=== PATIENT | female | born 1995 | race Caucasian/White ===

== ENCOUNTER → 2021-12-06 | Outpatient (CLI) | payer OTHER | LOC: M RAD 06:55 | PROVIDERS: ATTEND Registered Nurse | DX: R10.11 Right upper quadrant pain (principal) ==

== ENCOUNTER 2022-03-16 15:20 | Outpatient (CLI) | payer OTHER ==
[~2022-03-16] VITALS: Ht 162.6 cm; Wt 73.5 kg
[2022-03-16 15:46] VITALS: BP 140/81
[2022-03-16] MEDS ORDERED: PRENTAB9 PO (15:52)
[2022-03-16] MEDS ORDERED: ACET-840 PO (15:52)
[2022-03-16] MEDS ORDERED: OMEP10CASR PO (15:54)
[2022-03-16] MEDS ORDERED: HOME MED LIST COMPLETE! XX SCH (15:55)
[2022-03-16 17:21] VITALS: BP 143/87
[2022-03-16 17:42] VITALS: BP 140/79
== END 2022-03-16 17:45 | disposition home or self-care (01) ==
LOC: M LDO 15:20
PROVIDERS: ATTEND Obstetrics & Gynecology
DX: O47.9 False labor, unspecified (principal); Z3A.00 Weeks of gestation of pregnancy not specified
CPT/HCPCS: 59025; 76815; G0463

== ENCOUNTER 2022-04-01 03:37 | Inpatient (IN) | payer OTHER ==
[2022-04-01] VITALS (7 sets, daily range): BP systolic 128–146; BP diastolic 66–89
[~2022-04-01] VITALS: Ht 162.6 cm; Wt 72.9 kg
[~2022-04-01 03:37] MED LIST: ACET-840 PO; OMEP10CASR PO; PRENTAB9 PO
[2022-04-01] MEDS ORDERED: LACTATED RINGER'S 1000 ML IV STA (04:54)
[2022-04-01] MEDS ORDERED: OXYTOCIN DRIP 30 UNITS in IV 1 EA IV PRN ×4 (04:55)
[2022-04-01] MEDS ORDERED: LR 1,000 ML IV SCH (04:55)
[2022-04-01] MEDS ORDERED: OXYTOCIN INJ 10 UNITS/ML VIAL (J2590) IV PRN (04:55)
[2022-04-01] MEDS ORDERED: LIDOCAINE 1% MDV 20ML VIAL INFIL PRN (04:55)
[2022-04-01 05:46] LABS: HEMATOCRIT 31.1 % (36.0-47.0); HEMOGLOBIN 9.4 g/dl (12.0-15.5); MEAN CORPUSCULAR HEMOGLOBIN 23.9 pg (27.0-33.0); MEAN CORPUSCULAR HGB CONC 30.2 g/dl (32.0-36.5); MEAN CORPUSCULAR VOLUME 79.1 fl (80.0-96.0); PLATELET COUNT, AUTOMATED 244 10^3/uL (150-450); RED BLOOD COUNT 3.93 10^6/uL (4.00-5.40); WHITE BLOOD COUNT 10.2 10^3/uL (4.0-10.0)
[2022-04-01] MEDS ORDERED: TUMS500C PO (05:51)
[2022-04-01] MEDS ORDERED: HOME MED LIST COMPLETE! XX SCH (06:00)
[2022-04-01 06:53] LABS: CORD GAS ABE V -5.4; CORD GAS HCO3 V 18.7 MEQ/L; CORD GAS O2 SAT V 83.8 %; CORD GAS PCO2 V 33.3 mmHg; CORD GAS PH V 7.368 UNITS; CORD GAS PO2 V 37.3 mmHg; CORD GAS SBC V 19.7 MEQ/L; CORD GAS TCO2 V 19.8 MEQ/L
[2022-04-01 06:56] LABS: CORD GAS ABE A -5.7; CORD GAS HCO3 A 23.7 MEQ/L; CORD GAS O2 SAT A 30.2 %; CORD GAS PCO2 A 62.8 mmHg; CORD GAS PH A 7.194 UNITS; CORD GAS PO2 A 17.3 mmHg; CORD GAS SBC A 18.2 MEQ/L; CORD GAS TCO2 A 25.6 MEQ/L
[2022-04-01] MEDS ORDERED: PROMETHAZINE 25 MG TAB PO PRN (07:05)
[2022-04-01] MEDS ORDERED: METHYLERGONOVINE MALEATE 0.2 MG TAB PO PRN (07:05)
[2022-04-01] MEDS ORDERED: OXYTOCIN DRIP 30 UNITS in IV 1 EA IV SCH (07:05)
[2022-04-01] MEDS ORDERED: RHOGAM 300 MCG (1500 IU) INJ (J2790) IM SCH (07:05)
[2022-04-01] MEDS ORDERED: ONDANSETRON 4MG/2ML VIAL IV PRN (07:05)
[2022-04-01] MEDS ORDERED: DOCUSATE SODIUM 100MG CAPSULE PO PRN (07:05)
[2022-04-01] MEDS: LR 1,000 ML IV SCH ×3 (07:05→23:05)
[2022-04-01] MEDS ORDERED: DIBUCAINE 1% OINTMENT 30GM TOP PRN (07:05)
[2022-04-01] MEDS ORDERED: PRENATAL VITAMINS CHEWABLE TABLET PO SCH (09:00)
[2022-04-01] MEDS: PRENATAL VITAMINS CHEWABLE TABLET PO SCH (09:00)
[2022-04-01] MEDS: IBUPROFEN 800 MG TAB PO SCH ×3 (09:25→23:41)
[2022-04-01] MEDS: ACETAMINOPHEN 500 MG TAB PO SCH ×3 (13:42→23:41)
[2022-04-02 06:05] VITALS: BP 120/75
[2022-04-02] MEDS: ACETAMINOPHEN 500 MG TAB PO SCH (06:21)
[2022-04-02] MEDS ORDERED: IBUP80TA PO (06:36)
[2022-04-02] MEDS ORDERED: COLA100C5 PO (06:36)
[2022-04-02] MEDS ORDERED: PRENCHW PO (06:36)
[2022-04-02] MEDS: LR 1,000 ML IV SCH (07:05)
[2022-04-02 07:40] LABS: HEMATOCRIT 28.2 % (36.0-47.0); HEMOGLOBIN 8.5 g/dl (12.0-15.5); MEAN CORPUSCULAR HEMOGLOBIN 23.9 pg (27.0-33.0); MEAN CORPUSCULAR HGB CONC 30.1 g/dl (32.0-36.5); MEAN CORPUSCULAR VOLUME 79.2 fl (80.0-96.0); PLATELET COUNT, AUTOMATED 230 10^3/uL (150-450); RED BLOOD COUNT 3.56 10^6/uL (4.00-5.40); WHITE BLOOD COUNT 10.9 10^3/uL (4.0-10.0)
[2022-04-02] MEDS: PRENATAL VITAMINS CHEWABLE TABLET PO SCH (08:11)
[2022-04-02] MEDS: IBUPROFEN 800 MG TAB PO SCH (08:12)
[2022-04-03] MEDS ORDERED: MEASLES,MUMPS,RUBELLA VACCINE INJ (MMR-II) (90707) SC ONE (09:00)
== END 2022-04-02 12:35 | disposition home or self-care (01) | DRG 807 ==
LOC: M LDO 03:37 → M LDI 04:51 → M OBS 09:15
PROVIDERS: ADMIT Obstetrics & Gynecology; ATTEND Obstetrics & Gynecology
PROC: 10E0XZZ Delivery of Products of Conception, External Approach (ICD-10-PCS; principal; 2022-04-01)
DX: O48.0 Post-term pregnancy (principal); Z37.0 Single live birth; Z3A.40 40 weeks gestation of pregnancy